=== PATIENT | male | born 1995 | race American Indian/Alaskan Native ===

== ENCOUNTER 2017-08-13 14:59 | Emergency (ER) | payer SELFPAY ==
[2017-08-13 15:39] LABS: Basophils # (Auto) 0.1 K/mm3 (0.0-0.1); Basophils % (Auto) 0.5 % (0.0-1.8); Eosinophils # (Auto) 0.5 K/mm3 (0.0-0.4); Eosinophils % (Auto) 3.5 % (0.0-4.3); Hematocrit 44.4 % (35.5-45.6); Hemoglobin 15.3 gm/dl (11.8-15.2); Lymphocytes # (Auto) 1.7 K/mm3 (1.2-5.4); Lymphocytes % (Auto) 11.4 % (13.4-35.0); Mean Corpuscular HGB Conc 35 % (32-34); Mean Corpuscular Hemoglobin 28 pg (28-32); Mean Corpuscular Volume 80 fl (84-94); Monocytes # (Auto) 1.2 K/mm3 (0.0-0.8); Monocytes % (Auto) 8.1 % (0.0-7.3); Platelet Count 302 K/mm3 (140-440); Red Blood Count 5.57 M/mm3 (3.65-5.03); Red Cell Distribution Width 13.7 % (13.2-15.2)
[2017-08-13 15:57] LABS: BUN/Creatinine Ratio 11; Blood Urea Nitrogen 11 mg/dL (9-20); Calcium 8.9 mg/dL (8.4-10.2); Hemolysis Index 2
--- NOTE | 2017-08-13 16:01 | Emergency Department Report ---
ED General Adult HPI - General Chief complaint: Dyspnea/Respdistress Stated complaint: MONSERRAT/CHEST PAINS Time Seen by Provider: 08/13/17 15:49 Source: patient, EMS Mode of arrival: Stretcher Limitations: No Limitations - History of Present Illness Initial comments: Cough with chest pain with breathing for 2 days. He was brought in by EMS with bronchospasm Did have a breathing treatment with marked improvement he is here for evaluation of persistent intermittent chest pain with breathing with bronchospasm with greenish cough for 2 days denies any past medical history. Thinks his lungs got inflamed after he was inhaling some chlorine at work 2 days ago no headache or stiff neck no fever no visual problems no photophobia no exertional chest pain or swelling no risk for dvt or pe no tearing pain atypical chest pain with breathing -: Gradual, days(s) Radiation: non-radiation Consistency: intermittent Associated Symptoms: cough. denies: diaphoresis, fever/chills, headaches, loss of appetite, malaise, nausea/vomiting, rash, seizure, shortness of breath, syncope, weakness - Related Data Previous Rx's Medication Instructions Recorded Last Taken Type Ibuprofen [Motrin 800 MG tab] 800 mg PO Q8HR PRN #30 tablet 06/01/16 Unknown Rx ALBUTEROL Inhaler [ProAir HFA 2 puff IH QID PRN #1 inhalation 08/13/17 Unknown Rx Inhaler] Azithromycin [Zithromax TAB] 500 mg PO QDAY #5 tablet 08/13/17 Unknown Rx Prednisone 50 mg PO DAILY #5 tablet 08/13/17 Unknown Rx Allergies Allergy/AdvReac Type Severity Reaction Status Date / Time No Known Allergies Allergy Verified 06/01/16 20:06 ED Review of Systems ROS: Stated complaint: MONSERRAT/CHEST PAINS Other details as noted in HPI Comment: All other systems reviewed and negative Constitutional: denies: diaphoresis, fever, malaise Eyes: denies: eye discharge, vision change ENT: denies: dental pain, hearing loss, epistaxis Respiratory: cough, wheezing. denies: orthopnea, SOB with exertion, SOB at rest , stridor Cardiovascular: chest pain. denies: palpitations, dyspnea on exertion, orthopnea, edema, syncope, paroxysmal nocturnal dyspnea Gastrointestinal: denies: abdominal pain, nausea, vomiting, diarrhea, constipation, hematemesis, melena, hematochezia Neurological: denies: weakness, numbness, paresthesias, confusion, abnormal gait , vertigo Hematological/Lymphatic: denies: easy bruising, swollen glands ED Past Medical Hx - Past Medical History Previous Medical History?: No - Surgical History Past Surgical History?: No - Social History Smoking Status: Never Smoker Substance Use Type: None - Medications Home Medications: Home Medications Medication Instructions Recorded Confirmed Last Taken Type Ibuprofen [Motrin 800 MG tab] 800 mg PO Q8HR PRN #30 tablet 06/01/16 Unknown Rx ALBUTEROL Inhaler [ProAir HFA 2 puff IH QID PRN #1 inhalation 08/13/17 Unknown Rx Inhaler] Azithromycin [Zithromax TAB] 500 mg PO QDAY #5 tablet 08/13/17 Unknown Rx Prednisone 50 mg PO DAILY #5 tablet 08/13/17 Unknown Rx ED Physical Exam - General Limitations: No Limitations General appearance: alert, in no apparent distress, anxious - Head Head exam: Present: atraumatic, normocephalic - Eye Eye exam: Present: normal appearance, PERRL, EOMI - ENT ENT exam: Present: normal exam, normal orophraynx - Neck Neck exam: Present: normal inspection. Absent: tenderness, meningismus - Respiratory Respiratory exam: Present: normal lung sounds bilaterally, rhonchi. Absent: respiratory distress, wheezes, rales, stridor, chest wall tenderness, accessory muscle use, decreased breath sounds, prolonged expiratory - Cardiovascular Cardiovascular Exam: Present: regular rate, normal rhythm - GI/Abdominal GI/Abdominal exam: Present: soft. Absent: tenderness, guarding, rebound, organomegaly, mass, pulsatile mass - Extremities Exam Extremities exam: Present: normal capillary refill. Absent: pedal edema, joint swelling, calf tenderness - Back Exam Back exam: Present: normal inspection. Absent: full ROM, tenderness, CVA tenderness (R), CVA tenderness (L), muscle spasm, paraspinal tenderness, vertebral tenderness - Neurological Exam Neurological exam: Present: alert, oriented X3, CN II-XII intact. Absent: motor sensory deficit - Psychiatric Psychiatric exam: Present: anxious ED Medical Decision Making - Lab Data Result diagrams: 08/13/17 15:22 08/13/17 15:22 - EKG Data -: EKG Interpreted by Me - EKG Data 08/13/17 17:[address] T changes - Radiology Data Radiology results: report reviewed - Medical Decision Making Labs were mostly unremarkable EKG nondiagnostic chest pain atypical troponin is negative does have an elevated WBC with greenish cough with likely bronchitis and bronchospasm he is still for outpatient follow-up with repeat vital signs stable Critical care attestation.: If time is entered above; I have spent that time in minutes in the direct care of this critically ill patient, excluding procedure time. ED Disposition Clinical Impression: Asthmatic bronchitis Disposition: - TO HOME OR SELFCARE Is pt being admited?: No Condition: Stable Instructions: Acute Bronchitis (ED), Bronchospasm (ED) Additional Instructions: Return if new or alarming symptoms to the doctor listed Prescriptions: ALBUTEROL Inhaler [ProAir HFA Inhaler] 2 puff IH QID PRN #1 inhalation PRN Reason: Shortness Of Breath Azithromycin [Zithromax TAB] 500 mg PO QDAY #5 tablet Prednisone 50 mg PO DAILY #5 tablet
[2017-08-13] MEDS ORDERED: DUONEB *Not for PRN Use IH ONE (16:02)
[2017-08-13] MEDS ORDERED: DELTASONE PO ONE (16:02)
--- NOTE | 2017-08-13 16:48 | XRay Report ---
FINAL REPORT PROCEDURE: XR CHEST ROUTINE 2V TECHNIQUE: PA and lateral chest radiographs were obtained. CPT 58617 HISTORY: Shortness of breath COMPARISON: No prior studies are available for comparison. FINDINGS: Heart: Normal. Mediastinum/Vessels: Normal. Lungs/Pleural space: Clear.. Bony thorax: No acute osseous abnormality. Mild thoracic scoliosis visualized. Other: IMPRESSION: No evidence of acute cardiac or pulmonary process..
== END 2017-08-13 17:35 | disposition home or self-care (01) ==
LOC: ED 14:59
DX: J40 Bronchitis, not specified as acute or chronic (principal)
CPT/HCPCS: 36415; 71046; 80048; 84484; 85025; 93005; 93010; 94640; 99284; J7512

== ENCOUNTER 2017-10-18 14:15 | Inpatient (IN) | payer OTHER ==
[2017-10-18 16:21] LABS: Basophils # (Auto) 0.1 K/mm3 (0.0-0.1); Basophils % (Auto) 0.6 % (0.0-1.8); Eosinophils # (Auto) 0.4 K/mm3 (0.0-0.4); Eosinophils % (Auto) 3.4 % (0.0-4.3); Hematocrit 41.6 % (35.5-45.6); Hemoglobin 14.5 gm/dl (11.8-15.2); Lymphocytes # (Auto) 1.6 K/mm3 (1.2-5.4); Lymphocytes % (Auto) 12.2 % (13.4-35.0); Mean Corpuscular HGB Conc 35 % (32-34); Mean Corpuscular Hemoglobin 28 pg (28-32); Mean Corpuscular Volume 80 fl (84-94); Monocytes # (Auto) 0.8 K/mm3 (0.0-0.8); Monocytes % (Auto) 6.6 % (0.0-7.3); Platelet Count 330 K/mm3 (140-440); Red Blood Count 5.17 M/mm3 (3.65-5.03); Red Cell Distribution Width 14.1 % (13.2-15.2)
[2017-10-18 16:27] LABS: INR 2.24 (0.87-1.13)
[2017-10-18 16:28] LABS: Partial Thromboplastin Time 35.1 Sec. (24.2-36.6)
[2017-10-18 16:34] LABS: BUN/Creatinine Ratio 11; Blood Urea Nitrogen 9 mg/dL (9-20); Calcium 9.4 mg/dL (8.4-10.2); Hemolysis Index 0
[2017-10-18] MEDS ORDERED: FIORICET PO ONE (17:55)
--- NOTE | 2017-10-18 18:00 | Emergency Department Report ---
HPI - General Chief Complaint: Headache Time Seen by Provider: 10/18/17 17:42 - HPI HPI: Room 4 The patient is a 21-year-old male presenting with a chief complaint of headache. The patient states for 5 days has had a constant headache in the frontal and bitemporal regions. Patient denies any preceding trauma. Patient describes pain as sharp in nature. Patient admits to 3 episodes of vomiting. Patient denies history of fever or rash. The patient gets his pain is 9/10 Location: [See above] Duration: 5 days Quality: Sharp Severity: 9/10 Modifying factors: [see above] Context: [see above] Mode of transportation: [not driving] ED Past Medical Hx - Past Medical History Previous Medical History?: No - Surgical History Past Surgical History?: No - Family History Family history: no significant - Social History Smoking Status: Never Smoker Substance Use Type: Marijuana - Medications Home Medications: Home Medications Medication Instructions Recorded Confirmed Last Taken Type Ibuprofen [Motrin 800 MG tab] 800 mg PO Q8HR PRN #30 tablet 06/01/16 Unknown Rx ALBUTEROL Inhaler [ProAir HFA 2 puff IH QID PRN #1 inhalation 08/13/17 Unknown Rx Inhaler] Azithromycin [Zithromax TAB] 500 mg PO QDAY #5 tablet 08/13/17 Unknown Rx Prednisone 50 mg PO DAILY #5 tablet 08/13/17 Unknown Rx ED Review of Systems ROS: Stated complaint: HEADACHE AND VOMITTING Other details as noted in HPI Constitutional: denies: fever Eyes: denies: eye pain ENT: denies: throat pain Respiratory: no symptoms reported Cardiovascular: denies: chest pain Endocrine: denies: unexplained weight loss (patient states he intentionally lost weight over 6 months through intensive diet and exercise) Gastrointestinal: nausea, vomiting. denies: abdominal pain Genitourinary: denies: dysuria Musculoskeletal: denies: back pain Skin: denies: change in color Neurological: headache Physical Exam - Physical Exam Vital Signs: Vital Signs 10/18/17 14:50 Temperature 99.1 F Pulse Rate 69 Respiratory 16 Rate Blood Pressure 120/57 O2 Sat by Pulse 99 Oximetry Physical Exam: GENERAL: The patient is well-developed well-nourished male sitting on stretcher not appear to be in acute distress. [] HEENT: Normocephalic. Atraumatic. Extraocular motions are intact. Patient has moist mucous membranes. NECK: Supple. No meningitic signs are noted. There is no nuchal rigidity. Patient states that if he sits up and then flexes his neck sometimes he has increased pain in the forehead but no neck pain CHEST/LUNGS: Clear to auscultation. There is no respiratory distress noted. HEART/CARDIOVASCULAR: Regular. There is no tachycardia. There is no gallop rub or murmur. ABDOMEN: Abdomen is soft, nontender. Patient has normal bowel sounds. There is no abdominal distention. SKIN: There is no rash. There is no edema. There is no diaphoresis. NEURO: The patient is awake, alert, and oriented. The patient is cooperative. The patient has no focal neurologic deficits. The patient has normal speech. Cranial nerves II through XII grossly intact, no drift MUSCULOSKELETAL: There is no evidence of acute injury. ED Course Vital Signs 10/18/17 14:50 Temperature 99.1 F Pulse Rate 69 Respiratory 16 Rate Blood Pressure 120/57 O2 Sat by Pulse 99 Oximetry - Lumbar Puncture Consent Obtained: verbal consent Time Out Performed: Yes Indication for Procedure: headache Patient Position: Sitting Upright/Leaning F Skin Prep: Povidone-Iodine 1% Local Anesthetic Used: Lidocaine 1% Amount of anesthesia used (mls): 10 Spinal Needle Gauge: 20G Spinal Needle Length: 3.5in Interspace Used: L4-L5 Complications: unable to obtain CSF (needle was inserted to the hub with no return of CSF) Patient Tolerated Procedure: well ED Medical Decision Making - Lab Data Result diagrams: 10/18/17 15:39 10/18/17 15:39 Laboratory Tests 10/18/17 10/18/17 10/18/17 15:39 15:39 15:39 WBC 12.8 H RBC 5.17 H Hgb 14.5 Hct 41.6 MCV 80 L MCH 28 MCHC 35 H RDW 14.1 Plt Count 330 Lymph % (Auto) 12.2 L [place] % (Auto) 6.6 Eos % (Auto) 3.4 Baso % (Auto) 0.6 Lymph # 1.6 [place] # 0.8 Eos # 0.4 Baso # 0.1 Seg Neutrophils % 77.2 H Seg Neutrophils # 9.9 H PT 26.3 H INR 2.24 H APTT 35.1 Sodium 144 Potassium 4.3 Chloride 104.8 Carbon Dioxide 29 Anion Gap 15 BUN 9 Creatinine 0.8 Estimated GFR > 60 BUN/Creatinine Ratio 11 Glucose 84 Calcium 9.4 10/18/17 18:09 WBC RBC Hgb Hct MCV MCH MCHC RDW Plt Count Lymph % (Auto) [place] % (Auto) Eos % (Auto) Baso % (Auto) Lymph # [place] # Eos # Baso # Seg Neutrophils % Seg Neutrophils # PT 14.5 INR 1.07 APTT 38.0 H Sodium Potassium Chloride Carbon Dioxide Anion Gap BUN Creatinine Estimated GFR BUN/Creatinine Ratio Glucose Calcium - Radiology Data Radiology results: report reviewed (CT head), image reviewed (CT head) [facility] [address] [place] [address] Cat Scan Report Signed Patient: NAYE GE MR#: [id number] : 1995 Acct:[id number] Age/Sex: 21 / M ADM Date: 10/18/17 Loc: ED Attending Dr: Ordering Physician: SANDY MACK MD Date of Service: 10/18/17 Procedure(s): CT head/brain wo con Accession Number(s): [id number] cc: SANDY MACK MD FINAL REPORT EXAM: CT HEAD/BRAIN WO CON HISTORY: headache TECHNIQUE: CT head without contrast PRIORS: None. FINDINGS: No acute intra-axial or extra-axial hemorrhage is identified. There is no evidence of midline shift or mass effect. The ventricles and sulci are within normal limits. Chakraborty-white matter differentiation is intact. No acute parenchymal abnormalities seen. Bony calvarium is grossly intact. Visualized portions of the mastoids and paranasal sinuses are unremarkable. IMPRESSION: Negative CT head Transcribed By: Kimber Dictated By: MADHU LAMB MD Electronically Authenticated By: MADHU LAMB MD Signed Date/Time: 10/18/171947 DD/ 47 TD/TT: 10/18/171947 - Differential Diagnosis headache, ICH, migraines, intracranial mass, coagulopathy, Critical care attestation.: If time is entered above; I have spent that time in minutes in the direct care of this critically ill patient, excluding procedure time. ED Disposition Clinical Impression: Headache Disposition: OP ADMIT IP TO THIS HOSP Is pt being admited?: Yes Does the pt Need Aspirin: No Condition: Fair Referrals: PRIMARY CARE, [Primary Care Provider] - 3-5 Days Time of Disposition: 21:37 (hospitalist paged (Dr Hernandez))
[2017-10-18] MEDS ORDERED: ZOFRAN ONE (18:27)
[2017-10-18] MEDS ORDERED: ZOFRAN IV ONE (18:31)
[2017-10-18] MEDS ORDERED: SUBLIMAZE IV ONE ×3 (18:54→22:43)
[2017-10-18] MEDS ORDERED: REGLAN IV ONE (18:54)
[2017-10-18 19:32] LABS: INR 1.07 (0.87-1.13)
--- NOTE | 2017-10-18 19:53 | Cat Scan Report ---
FINAL REPORT EXAM: CT HEAD/BRAIN WO CON HISTORY: headache TECHNIQUE: CT head without contrast PRIORS: None. FINDINGS: No acute intra-axial or extra-axial hemorrhage is identified. There is no evidence of midline shift or mass effect. The ventricles and sulci are within normal limits. Chakraborty-white matter differentiation is intact. No acute parenchymal abnormalities seen. Bony calvarium is grossly intact. Visualized portions of the mastoids and paranasal sinuses are unremarkable. IMPRESSION: Negative CT head
[2017-10-18] MEDS ORDERED: XYLOCAINE 1% 20 mL ONE (21:13)
[2017-10-18] MEDS ORDERED: XYLOCAINE 1% 20 mL INFILTRATI ONE (22:43)
[2017-10-18] MEDS ORDERED: NACL 0.9% 1000 ML 1,000 ML IV ONE (23:02)
[2017-10-18] MEDS ORDERED: PHENERGAN PR ONE (23:02)
[2017-10-18] MEDS ORDERED: TYLENOL PO PRN (23:49)
--- NOTE | 2017-10-19 02:24 | History and Physical Report ---
CHIEF COMPLAINT: Headache. HISTORY OF PRESENT ILLNESS: The patient is a 21-year-old male who was noted to be having headache that involved the frontal area going on for 5 days, also, the headache involves the bitemporal area of the head. There is no history of trauma. There is no history of fever or chills. There is no history of neck stiffness and the patient describes the headaches as sharp in nature. There is no history of nasal congestion. The patient presented to the Emergency Room for evaluation. PAST MEDICAL HISTORY: Unremarkable. PAST SURGICAL HISTORY: Unremarkable. FAMILY HISTORY: Noncontributory. SOCIAL HISTORY: The patient does not smoke, does not drink alcohol, and uses marijuana. MEDICATIONS: The patient is on ibuprofen 800 mg by mouth every 8 hours as needed for pain and headache. The patient is also on albuterol inhaler two puffs as needed for shortness of breath and prednisone 50 mg by mouth daily. ALLERGIES: There are no known drug allergies. REVIEW OF SYSTEMS: CONSTITUTIONAL: There is no fever, no chills, no diaphoresis. HEENT: Headache present. No sore throat. CARDIOVASCULAR SYSTEM: There is no chest pain or orthopnea. RESPIRATORY SYSTEM: There is no shortness of breath or cough. GASTROINTESTINAL SYSTEM: Nausea and vomiting present. No abdominal pain, no diarrhea or constipation. NEUROLOGICAL SYSTEM: There is no numbness, no dizziness, no altered mental status. MUSCULOSKELETAL SYSTEM: There is no joint pain or swelling. DERMATOLOGICAL SYSTEM: There is no skin rash or itching. GENITOURINARY SYSTEM: There is no dysuria, hematuria or flank pain. Rest of system review is normal. PHYSICAL EXAMINATION: GENERAL: At the time of exam, the patient was found to be alert, oriented x 3, and not in acute distress. VITAL SIGNS: Shows temperature of 99.1 degrees Fahrenheit, pulse of 69, respirations 16, blood pressure 120/57, O2 sat of 99% on room air. HEENT: Exam showed pupils to be equal, round, and reactive to light and accommodation. Extraocular muscles are intact. NECK: Supple, with no JVD or carotid bruit. CARDIOVASCULAR SYSTEM: Show normal first and second heart sounds with no gallops or murmurs. RESPIRATORY SYSTEM: Show good air entry on both sides of the lungs with no abnormal breath sounds. GASTROINTESTINAL SYSTEM: Show abdomen to be full, soft, nontender with no organomegaly or rigidity. NEUROLOGIC: Exam shows no focal deficits. MUSCULOSKELETAL SYSTEM: Show no joint swelling or tenderness. DERMATOLOGICAL SYSTEM: Show no skin rash. GENITOURINARY SYSTEM: Showing no costovertebral angle tenderness. PERTINENT LABORATORY STUDIES: The patient has CBC done with elevated white count of 12,800, normal hemoglobin, normal hematocrit, with CBC differential showing elevated segmented neutrophil of 7.2%, coagulation studies show elevated INR of 3.2, and elevated PT of 26.3, and high PTT of 38. The patient is not on any Coumadin. Chemistry is unremarkable. IMAGING STUDIES: The patient had a CT of the head done that was unremarkable. The patient also had lumbar puncture done with no cerebrospinal fluid obtained during the lumbar puncture. DIAGNOSES: 1. Headache. 2. Leukocytosis. 3. Elevated INR. PLAN: The patient will be admitted to medical/surgical floor, and will be on Tylenol 650 mg by mouth every 4 hours for fever and headache. The patient will be on intravenous ceftriaxone 1 g daily as an empiric treatment. After blood culture were done, the patient will be on intravenous Zofran 4 mg every 8 hours as needed for nausea and vomiting and deep venous thrombosis prophylaxis will be through sequential compressive device. Further management of the patient will be determined along with presentation. JOB# [id number] OCN/NTS
[2017-10-19] MEDS: NACL 0.9% 1000 ML 1,000 ML IV SCH ×3 (02:45→21:58)
[2017-10-19] MEDS: MORPHINE IV PRN ×5 (02:45→21:58)
[2017-10-19 06:58] LABS: Hematocrit 38.3 % (35.5-45.6); Hemoglobin 13.2 gm/dl (11.8-15.2)
[2017-10-19 07:22] LABS: Albumin 3.6 g/dL (3.9-5); Bilirubin,Direct 0.2 mg/dL (0-0.2)
--- NOTE | 2017-10-19 07:58 | Progress Note ---
Assessment and Plan Assessment and plan: Patient is a 21 yo man with a history of marijuana use who presented to ED headaches, n/v/d. CT head reported as negative, wbc 12.8. INR was 2.24, then 1.07 on repeat. LP was done in ED but to procedure note yet or labs results from the LP. -Headache with n/v suspect related to marijuana use with AGE: pain control -Acute Gastroenteritis: treat supportively, antiemetics -Leukocytosis w/o SIRS, suspected to be reactive but started on empiric abx, follow cultures, Get HIV testing -Marijuana use: group counselor on stopping -DVT prophylaxis: scd only -Hematemesis, GI consulted with normal h/h, possible related to vomiting, still NPO: cbc in am History Interval history: Patient was seen and examined. Follow-up on current diagnosis, n/v/dalal/d. Overnight uneventful. Patient denies any chest pain, shortness breath. Imaging, nursing note, chart, labs and old chart reviewed. Discussed with patient. Hospitalist Physical - Physical exam Narrative exam: GEN: WDWN, NAD, Awake, Alert, Orientated x 3 HEENT: NCAT, EOMI, PERRL, OP Clear NECK: supple, no adenopathy, no thyromegaly, no JVD CVS/HEART: RRR, normal S1S2, pulses present bilaterally CHEST/LUNGS: CTA B, Symmetrical chest expansion, good air entry bilaterally GI/Abdomen: soft, non distended, diffuse tenderness bilateral, good bowel sounds , no guarding or rebound /Bladder: no suprapubic tenderness, no CVA or paraspinal tenderness EXT/Skin: no c/c/e, no obvious rash MSK: FROM x 4 Neuro: CN 2-12 grossly intact, no new focal deficits Psych: calm - Constitutional Vitals: Temp Pulse Resp BP Pulse Ox 99.2 F 64 18 141/88 98 10/19/17 05:09 10/19/17 05:09 10/19/17 05:09 10/19/17 05:09 10/19/17 05:09 Results - Labs CBC & Chem 7: 10/19/17 06:27 10/18/17 15:39 Labs: Laboratory Last Values WBC 12.8 K/mm3 (4.5-11.0) H 10/18/17 15:39 RBC 5.17 M/mm3 (3.65-5.03) H 10/18/17 15:39 Hgb 13.2 gm/dl (11.8-15.2) 10/19/17 06:27 Hct 38.3 % (35.5-45.6) 10/19/17 06:27 MCV 80 fl (84-94) L 10/18/17 15:39 MCH 28 pg (28-32) 10/18/17 15:39 MCHC 35 % (32-34) H 10/18/17 15:39 RDW 14.1 % (13.2-15.2) 10/18/17 15:39 Plt Count 330 K/mm3 (140-440) 10/18/17 15:39 Lymph % (Auto) 12.2 % (13.4-35.0) L 10/18/17 15:39 [place] % (Auto) 6.6 % (0.0-7.3) 10/18/17 15:39 Eos % (Auto) 3.4 % (0.0-4.3) 10/18/17 15:39 Baso % (Auto) 0.6 % (0.0-1.8) 10/18/17 15:39 Lymph # 1.6 K/mm3 (1.2-5.4) 10/18/17 15:39 [place] # 0.8 K/mm3 (0.0-0.8) 10/18/17 15:39 Eos # 0.4 K/mm3 (0.0-0.4) 10/18/17 15:39 Baso # 0.1 K/mm3 (0.0-0.1) 10/18/17 15:39 Seg Neutrophils % 77.2 % (40.0-70.0) H 10/18/17 15:39 Seg Neutrophils # 9.9 K/mm3 (1.8-7.7) H 10/18/17 15:39 PT 14.5 Sec. (12.2-14.9) 10/18/17 18:09 INR 1.07 (0.87-1.13) 10/18/17 18:09 APTT 38.0 Sec. (24.2-36.6) H 10/18/17 18:09 Sodium 144 mmol/L (137-145) 10/18/17 15:39 Potassium 4.3 mmol/L (3.6-5.0) 10/18/17 15:39 Chloride 104.8 mmol/L (98-107) 10/18/17 15:39 Carbon Dioxide 29 mmol/L (22-30) 10/18/17 15:39 Anion Gap 15 mmol/L 10/18/17 15:39 BUN 9 mg/dL (9-20) 10/18/17 15:39 Creatinine 0.8 mg/dL (0.8-1.5) 10/18/17 15:39 Estimated GFR > 60 ml/min 10/18/17 15:39 BUN/Creatinine Ratio 11 % 10/18/17 15:39 Glucose 84 mg/dL (75-100) 10/18/17 15:39 Calcium 9.4 mg/dL (8.4-10.2) 10/18/17 15:39 Total Bilirubin 1.00 mg/dL (0.1-1.2) 10/19/17 06:27 Direct Bilirubin 0.2 mg/dL (0-0.2) 10/19/17 06:27 Indirect Bilirubin 0.8 mg/dL 10/19/17 06:27 AST 16 units/L (5-40) 10/19/17 06:27 ALT 27 units/L (7-56) 10/19/17 06:27 Alkaline Phosphatase 79 units/L (35-129) 10/19/17 06:27 Total Protein 6.5 g/dL (6.3-8.2) 10/19/17 06:27 Albumin 3.6 g/dL (3.9-5) L 10/19/17 06:27 Albumin/Globulin Ratio 1.2 % 10/19/17 06:27 Blood Type O POSITIVE 10/19/17 06:27 Antibody Screen Negative 10/19/17 06:27
[2017-10-19 08:09] LABS: Hematocrit 38.3 % (35.5-45.6); Hemoglobin 13.1 gm/dl (11.8-15.2); Mean Corpuscular HGB Conc 34 % (32-34); Mean Corpuscular Hemoglobin 28 pg (28-32); Mean Corpuscular Volume 82 fl (84-94); Platelet Count 308 K/mm3 (140-440); Red Blood Count 4.69 M/mm3 (3.65-5.03); Red Cell Distribution Width 14.1 % (13.2-15.2)
--- NOTE | 2017-10-19 08:45 | XRay Report ---
AP CHEST: HISTORY: Pneumonia AP view of the chest demonstrates a normal mediastinal and cardiac contour with clear lungs and normal bony and soft tissue structures. IMPRESSION: Unremarkable AP chest. No change since 08/13/17.
[2017-10-19] MEDS ORDERED: HEPARIN SUB-Q SCH (10:00)
[2017-10-19] MEDS ORDERED: ROCEPHIN/NS 1 GM/50 ML 1 GM/50 ML BAG IV SCH (10:00)
[2017-10-19] MEDS: PROTONIX IV SCH ×2 (10:55→21:59)
[2017-10-19 12:31] LABS: Bilirubin,Urine NEG (Negative); Blood,Urine NEG (Negative); Color,Urine Yellow (Yellow); Mucus,Urine FEW /HPF; Protein,Urine <15 mg/dL mg/dL (Negative)
[2017-10-19 12:33] LABS: RBC,Urine < 1.0 /HPF (0.0-6.0)
--- NOTE | 2017-10-19 14:52 | Gastroenterology Consultation ---
History of Present Illness - Reason for Consult Consult date: 10/19/17 Hematemesis Requesting physician: NEEL RANDHAWA - History of Present Illness Mr. David is a 21 y/o male admitted with reports of MONREAL/ N/V and one episode of diarrhea. His headache has been present for 5 days. He did not note blood in his emesis at first, but then noted a large amt once he continued to vomit. No recent sick contacts. No regular NSAID use, although he did take ibuprofen for his headache in the immediate days prior to admission. No prior GI hx . He denies abdominal pain and no further vomiting or diarrhea today. Past History Past Medical History: No medical history Past Surgical History: No surgical history Social history: smoking (pt uses marijuana) Family history: no significant family history Medications and Allergies Allergies Allergy/AdvReac Type Severity Reaction Status Date / Time No Known Allergies Allergy Verified 06/01/16 20:06 Home Medications Medication Instructions Recorded Confirmed Last Taken Type No Known Home Medications [No 10/18/17 10/18/17 Unknown History Reported Home Medications] Active Meds: Active Medications Acetaminophen (Tylenol) 650 mg PO Q4H PRN PRN Reason: Headache Ceftriaxone Sodium (Rocephin/Ns 1 Gm/50 Ml) 1 gm in 50 mls @ 100 mls/hr IV Q24HR MAXIMO; Protocol Last Admin: 10/19/17 10:54 Dose: 100 mls/hr Sodium Chloride (Nacl 0.9% 1000 Ml) 1,000 mls @ 125 mls/hr IV DIRECT MAXIMO Last Admin: 10/19/17 11:34 Dose: 125 mls/hr Morphine Sulfate (Morphine) 2 mg IV Q3H PRN PRN Reason: Headache Last Admin: 10/19/17 10:52 Dose: 2 mg Ondansetron HCl (Zofran) 4 mg IV Q8H PRN PRN Reason: Nausea And Vomiting Pantoprazole Sodium (Protonix) 40 mg IV BID MAXIMO Last Admin: 10/19/17 10:55 Dose: 40 mg Review of Systems - Review of Systems All systems: negative Constitutional: fatigue Gastrointestinal: nausea, vomiting, diarrhea Exam - Constitutional Vital Signs: Temp Pulse Resp BP Pulse Ox 98.5 F 56 L 16 132/76 99 10/19/17 11:28 10/19/17 11:28 10/19/17 11:28 10/19/17 11:28 10/19/17 11:28 General appearance: no acute distress - EENT Eyes: EOM intact ENT: hearing intact - Neck Neck: supple - Respiratory Respiratory: bilateral: CTA - Cardiovascular Rhythm: regular Heart Sounds: Present: S1 & S2 Extremities: No edema, Full ROM - Gastrointestinal General gastrointestinal: Present: soft, non-tender, normal bowel sounds - Integumentary Integumentary: Present: warm, dry - Neurologic Neurological: alert and oriented x3 - Psychiatric Psychiatric: cooperative - Labs CBC & Chem 7: 10/19/17 06:27 10/18/17 15:39 Lab Results: Laboratory Results - last 24 hr 10/18/17 10/18/17 10/18/17 15:39 15:39 15:39 WBC 12.8 H RBC 5.17 H Hgb 14.5 Hct 41.6 MCV 80 L MCH 28 MCHC 35 H RDW 14.1 Plt Count 330 Lymph % (Auto) 12.2 L [place] % (Auto) 6.6 Eos % (Auto) 3.4 Baso % (Auto) 0.6 Lymph # 1.6 [place] # 0.8 Eos # 0.4 Baso # 0.1 Seg Neutrophils % 77.2 H Seg Neutrophils # 9.9 H PT 26.3 H INR 2.24 H APTT 35.1 Sodium 144 Potassium 4.3 Chloride 104.8 Carbon Dioxide 29 Anion Gap 15 BUN 9 Creatinine 0.8 Estimated GFR > 60 BUN/Creatinine Ratio 11 Glucose 84 Calcium 9.4 Total Bilirubin Direct Bilirubin Indirect Bilirubin AST ALT Alkaline Phosphatase Total Protein Albumin Albumin/Globulin Ratio Urine Color Urine Turbidity Urine pH Ur Specific [place] Urine Protein Urine Glucose (UA) Urine Ketones Urine Blood Urine Nitrite Urine Bilirubin Urine Urobilinogen Ur Leukocyte Esterase Urine WBC (Auto) Urine RBC (Auto) Urine Mucus HIV 1&2 Antibody Rapid HIV P24 Antigen Blood Type Antibody Screen 10/18/17 10/19/17 10/19/17 18:09 06:27 06:27 WBC RBC Hgb 13.2 Hct 38.3 MCV MCH MCHC RDW Plt Count Lymph % (Auto) [place] % (Auto) Eos % (Auto) Baso % (Auto) Lymph # [place] # Eos # Baso # Seg Neutrophils % Seg Neutrophils # PT 14.5 INR 1.07 APTT 38.0 H Sodium Potassium Chloride Carbon Dioxide Anion Gap BUN Creatinine Estimated GFR BUN/Creatinine Ratio Glucose Calcium Total Bilirubin 1.00 Direct Bilirubin 0.2 Indirect Bilirubin 0.8 AST 16 ALT 27 Alkaline Phosphatase 79 Total Protein 6.5 Albumin 3.6 L Albumin/Globulin Ratio 1.2 Urine Color Urine Turbidity Urine pH Ur Specific [place] Urine Protein Urine Glucose (UA) Urine Ketones Urine Blood Urine Nitrite Urine Bilirubin Urine Urobilinogen Ur Leukocyte Esterase Urine WBC (Auto) Urine RBC (Auto) Urine Mucus HIV 1&2 Antibody Rapid HIV P24 Antigen Blood Type Antibody Screen 10/19/17 10/19/17 10/19/17 06:27 06:27 07:58 WBC 14.1 H RBC 4.69 Hgb 13.1 Hct 38.3 MCV 82 L MCH 28 MCHC 34 RDW 14.1 Plt Count 308 Lymph % (Auto) [place] % (Auto) Eos % (Auto) Baso % (Auto) Lymph # [place] # Eos # Baso # Seg Neutrophils % Seg Neutrophils # PT INR APTT Sodium Potassium Chloride Carbon Dioxide Anion Gap BUN Creatinine Estimated GFR BUN/Creatinine Ratio Glucose Calcium Total Bilirubin Direct Bilirubin Indirect Bilirubin AST ALT Alkaline Phosphatase Total Protein Albumin Albumin/Globulin Ratio Urine Color Yellow Urine Turbidity Clear Urine pH 6.0 Ur Specific [place] 1.021 Urine Protein <15 mg/dl Urine Glucose (UA) Neg Urine Ketones 20 Urine Blood Neg Urine Nitrite Neg Urine Bilirubin Neg Urine Urobilinogen 2.0 Ur Leukocyte Esterase Neg Urine WBC (Auto) 1.0 Urine RBC (Auto) < 1.0 Urine Mucus Few HIV 1&2 Antibody Rapid HIV P24 Antigen Blood Type O POSITIVE Antibody Screen Negative 10/19/17 11:24 WBC RBC Hgb Hct MCV MCH MCHC RDW Plt Count Lymph % (Auto) [place] % (Auto) Eos % (Auto) Baso % (Auto) Lymph # [place] # Eos # Baso # Seg Neutrophils % Seg Neutrophils # PT INR APTT Sodium Potassium Chloride Carbon Dioxide Anion Gap BUN Creatinine Estimated GFR BUN/Creatinine Ratio Glucose Calcium Total Bilirubin Direct Bilirubin Indirect Bilirubin AST ALT Alkaline Phosphatase Total Protein Albumin Albumin/Globulin Ratio Urine Color Urine Turbidity Urine pH Ur Specific [place] Urine Protein Urine Glucose (UA) Urine Ketones Urine Blood Urine Nitrite Urine Bilirubin Urine Urobilinogen Ur Leukocyte Esterase Urine WBC (Auto) Urine RBC (Auto) Urine Mucus HIV 1&2 Antibody Rapid Non react HIV P24 Antigen Non react Blood Type Antibody Screen Assessment and Plan 1. Hematemesis -N/V likely due to MONREAL/ +/- Marijuana usage. -Possibly Sabrina Mejia tear. -Pt would like to go forward with EGD tomorrow -H/H stable. -PPI daily -EGD tomorrow, NPO after MN.
[2017-10-20] MEDS: ZOFRAN IV PRN ×2 (03:56→22:34)
[2017-10-20] MEDS: MORPHINE IV PRN ×3 (03:56→23:18)
[2017-10-20] MEDS: NACL 0.9% 1000 ML 1,000 ML IV SCH ×2 (07:53→13:27)
--- NOTE | 2017-10-20 08:15 | Progress Note ---
Assessment and Plan Assessment and plan: Patient is a 21 yo man with a history of marijuana use who presented to ED headaches, n/v/d. CT head reported as negative, wbc 12.8. INR was 2.24, then 1.07 on repeat. LP was done in ED but to procedure note yet or labs results from the LP. * pCXR negative * CT head w/o contrast reported as negative -Hematemesis, possibly from retching causing Sabrina Mejia tear: EGD, GI following -Headache with n/v suspect related to marijuana use with AGE: pain control -Acute Gastroenteritis: treat supportively, antiemetics -Leukocytosis w/o SIRS, suspected to be reactive but started on empiric abx, follow cultures, HIV=>neg -Marijuana use: student financial services counselor on stopping -DVT prophylaxis: scd only HIV negative still low grade febrile, WBC increasing, stop iv rocephin and broad coverage with IV Zosyn. EGD today, Get CT chest if EGD unremarkable. History Interval history: Patient was seen and examined. Follow-up on current diagnosis, n/v/dalal/d. Overnight uneventful. Patient denies any chest pain, shortness breath. Imaging, nursing note, chart, labs and old chart reviewed. Discussed with patient. Hospitalist Physical - Physical exam Narrative exam: GEN: WDWN, NAD, Awake, Alert, Orientated x 3 HEENT: NCAT, EOMI, PERRL, OP Clear NECK: supple, no adenopathy, no thyromegaly, no JVD CVS/HEART: RRR, normal S1S2, pulses present bilaterally CHEST/LUNGS: CTA B, Symmetrical chest expansion, good air entry bilaterally GI/Abdomen: soft, non distended, diffuse tenderness bilateral, good bowel sounds , no guarding or rebound /Bladder: no suprapubic tenderness, no CVA or paraspinal tenderness EXT/Skin: no c/c/e, no obvious rash MSK: FROM x 4 Neuro: CN 2-12 grossly intact, no new focal deficits Psych: calm - Constitutional Vitals: Temp Pulse Resp BP Pulse Ox 99.6 F 55 L 20 117/60 97 10/20/17 05:26 10/20/17 05:26 10/20/17 05:26 10/20/17 05:26 10/20/17 05:26 Results - Labs CBC & Chem 7: 10/19/17 06:27 10/18/17 15:39 Labs: Laboratory Last Values WBC 14.1 K/mm3 (4.5-11.0) H 10/19/17 06:27 RBC 4.69 M/mm3 (3.65-5.03) 10/19/17 06:27 Hgb 13.1 gm/dl (11.8-15.2) 10/19/17 06: Hct 38.3 % (35.5-45.6) 10/19/17 06: MCV 82 fl (84-94) L 10/19/17 06:27 MCH 28 pg (28-32) 10/19/17 06: MCHC 34 % (32-34) 10/19/17 06: RDW 14.1 % (13.2-15.2) 10/19/17 06:27 Plt Count 308 K/mm3 (140-440) 10/19/17 06:27 Lymph % (Auto) 12.2 % (13.4-35.0) L 10/18/17 15:39 [place] % (Auto) 6.6 % (0.0-7.3) 10/18/17 15:39 Eos % (Auto) 3.4 % (0.0-4.3) 10/18/17 15:39 Baso % (Auto) 0.6 % (0.0-1.8) 10/18/17 15:39 Lymph # 1.6 K/mm3 (1.2-5.4) 10/18/17 15:39 [place] # 0.8 K/mm3 (0.0-0.8) 10/18/17 15:39 Eos # 0.4 K/mm3 (0.0-0.4) 10/18/17 15:39 Baso # 0.1 K/mm3 (0.0-0.1) 10/18/17 15:39 Seg Neutrophils % 77.2 % (40.0-70.0) H 10/18/17 15:39 Seg Neutrophils # 9.9 K/mm3 (1.8-7.7) H 10/18/17 15:39 PT 14.5 Sec. (12.2-14.9) 10/18/17 18:09 INR 1.07 (0.87-1.13) 10/18/17 18:09 APTT 38.0 Sec. (24.2-36.6) H 10/18/17 18:09 Sodium 144 mmol/L (137-145) 10/18/17 15:39 Potassium 4.3 mmol/L (3.6-5.0) 10/18/17 15:39 Chloride 104.8 mmol/L (98-107) 10/18/17 15:39 Carbon Dioxide 29 mmol/L (22-30) 10/18/17 15:39 Anion Gap 15 mmol/L 10/18/17 15:39 BUN 9 mg/dL (9-20) 10/18/17 15:39 Creatinine 0.8 mg/dL (0.8-1.5) 10/18/17 15:39 Estimated GFR > 60 ml/min 10/18/17 15:39 BUN/Creatinine Ratio 11 % 10/18/17 15:39 Glucose 84 mg/dL (75-100) 10/18/17 15:39 Calcium 9.4 mg/dL (8.4-10.2) 10/18/17 15:39 Total Bilirubin 1.00 mg/dL (0.1-1.2) 10/19/17 06:27 Direct Bilirubin 0.2 mg/dL (0-0.2) 10/19/17 06:27 Indirect Bilirubin 0.8 mg/dL 10/19/17 06:27 AST 16 units/L (5-40) 10/19/17 06:27 ALT 27 units/L (7-56) 10/19/17 06:27 Alkaline Phosphatase 79 units/L (35-129) 10/19/17 06:27 Total Protein 6.5 g/dL (6.3-8.2) 10/19/17 06:27 Albumin 3.6 g/dL (3.9-5) L 10/19/17 06:27 Albumin/Globulin Ratio 1.2 % 10/19/17 06:27 Urine Color Yellow (Yellow) 10/19/17 07:58 Urine Turbidity Clear (Clear) 10/19/17 07:58 Urine pH 6.0 (5.0-7.0) 10/19/17 07:58 Ur Specific [place] 1.021 (1.003-1.030) 10/19/17 07:58 Urine Protein <15 mg/dl mg/dL (Negative) 10/19/17 07:58 Urine Glucose (UA) Neg mg/dL (Negative) 10/19/17 07:58 Urine Ketones 20 mg/dL (Negative) 10/19/17 07:58 Urine Blood Neg (Negative) 10/19/17 07:58 Urine Nitrite Neg (Negative) 10/19/17 07:58 Urine Bilirubin Neg (Negative) 10/19/17 07:58 Urine Urobilinogen 2.0 mg/dL (<2.0) 10/19/17 07:58 Ur Leukocyte Esterase Neg (Negative) 10/19/17 07:58 Urine WBC (Auto) 1.0 /HPF (0.0-6.0) 10/19/17 07:58 Urine RBC (Auto) < 1.0 /HPF (0.0-6.0) 10/19/17 07:58 Urine Mucus Few /HPF 10/19/17 07:58 HIV 1&2 Antibody Rapid Non react (Non React) 10/19/17 11:24 HIV P24 Antigen Non react (Non React) 10/19/17 11:24 Blood Type O POSITIVE 10/19/17 06:27 Antibody Screen Negative 10/19/17 06:27
[2017-10-20] MEDS: PROTONIX IV SCH ×2 (10:20→22:34)
[2017-10-20] MEDS: ZOSYN/NS 4.5GM/100ML 4.5 GM/100 ML VIAL IV SCH ×3 (12:21→23:20)
[2017-10-20] MEDS ORDERED: WATER FOR IRRIG STERILE IR ONE (13:11)
--- NOTE | 2017-10-20 13:11 | Anesthesia Consultation ---
Anesthesia Consult and Med Hx Date of service: 10/20/17 - Airway Anesthetic Teeth Evaluation: Good ROM Head & Neck: Adequate Mental/Hyoid Distance: Adequate Mallampati Class: Class III Intubation Access Assessment: Possibly Difficult - Pulmonary Exam CTA: Yes - Pre-Operative Health Status ASA Pre-Surgery Classification: ASA3 Proposed Anesthetic Plan: MAC - Pulmonary Hx Smoking: No Hx Asthma: No COPD: No Hx Pneumonia: No - Endocrine Hx End Stage Renal Disease: No
--- NOTE | 2017-10-20 13:11 | Anesthesia Day of Surgery ---
Anesthesia Day of Surgery - Day of Surgery Patient Examined: Yes Patient H&P Reviewed: Yes Patient is NPO: Yes
[2017-10-20] MEDS ORDERED: XYLOCAINE MPF 2% ONE (13:30)
[2017-10-20] MEDS ORDERED: DIPRIVAN 10 MG/ML IV ONE ×2 (14:12→14:13)
--- NOTE | 2017-10-20 14:41 | Post Operative Note ---
Pre-op diagnosis: hematemesis Post-op diagnosis: same Findings: EGD: hiatal hernia, small - healing 1 cm M-W tear g-e junction - erosive gastritis w/ ulceration gastritis body (bx's) - small ulcerations antrum - negative other Procedure: EGD Anesthesia: MAC Surgeon: BLAKE SAWYER Estimated blood loss: none Pathology: list Specimen disposition: to lab Condition: stable Disposition: floor
--- NOTE | 2017-10-20 15:03 | Operative Report ---
PROCEDURE: Esophagogastroduodenoscopy. INDICATION: Hematemesis. MEDICATIONS: Propofol per BILINGUAL INSIDE SALES REPRESENTATIVE. COMPLICATIONS: None. DESCRIPTION OF PROCEDURE: The patient brought to procedure suite. The patient had the procedure discussed with him at length. All risks, complications, and benefits discussed, after which the patient signed for the procedure to be performed. The patient was placed in left lateral decubitus position. Mouth block was placed in the patient's oral cavity. After adequate sedation of medication as above, the endoscope was introduced into the mouth and brought to level of the second portion of duodenum. Retroflexion view performed. The patient's vital signs remained stable throughout the procedure. FINDINGS: There was noted to be a small hiatal hernia at GE junction 40 cm from the gums. There is a 1 cm healing Sabrina-Mejia tear noted at GE junction without significant bleeding stigmata requiring treatment. The esophagus otherwise appeared to be normal. There was moderate erosive esophagitis with ulcerations noted in the proximal lesser curvature. Biopsies were taken and sent to pathology. This was approximately 3-4 cm area. There were 3 small shallow ulcerations noted in the gastric antrum. The stomach otherwise appeared to be normal. The duodenum appeared to be normal. Retroflexion view performed in the stomach showed no other pathology other than noted above. The patient tolerated the procedure well. No complications during the procedure. IMPRESSION: 1. Hiatal hernia. 2. Healing Sabrina-Mejia tear without stigmata requiring treatment. 3. Erosive esophagitis, proximal stomach as noted above with ulcerations, biopsies performed. 4. Small ulcers in the antrum. 5. Otherwise, normal EGD. RECOMMENDATIONS: 1. Follow up biopsy results. 2. Stool for H. pylori, if present, treat with PPI daily. 3. Advance diet. Given a stable H and H, okay to discharge from a GI standpoint. JOB# [id number] [facility]
[2017-10-21] MEDS: ZOSYN/NS 4.5GM/100ML 4.5 GM/100 ML VIAL IV SCH ×3 (06:42→22:13)
[2017-10-21] MEDS: NACL 0.9% 1000 ML 1,000 ML IV SCH ×2 (06:43→18:38)
[2017-10-21 10:31] LABS: BUN/Creatinine Ratio 10; Blood Urea Nitrogen 9 mg/dL (9-20); Calcium 8.9 mg/dL (8.4-10.2); Hemolysis Index 298
--- NOTE | 2017-10-21 10:37 | Cat Scan Report ---
FINAL REPORT EXAM: CT CHEST WO CON HISTORY: fever, leucocytosis TECHNIQUE: Axial images were performed from the lung apices to the bases. Multiplanar reformats are performed on the acquisition scanner. Comparison: 08/13/2017 FINDINGS: Clear lungs. No pleural effusion. Multiple bilateral pectoral and small mediastinal lymph nodes. Soft tissue density in the anterior mediastinum presumably residual thymus gland. Prominent hilar contours presumably vascular structures, incompletely assessed without IV contrast. Imaged upper abdomen is unremarkable. Imaged axial skeleton is within normal limits. IMPRESSION: Multiple small superior mediastinal and pectoral/axillary lymph nodes. Anterior mediastinal soft tissue presumably represents residual thymus. Prominent hilar structures appear to represent vascular structures. If there is a high suspicious for adenopathy, recommend contrasted CT chest. No discrete infiltrate although lung volumes are low and there is mild crowding.
[2017-10-21] MEDS: PROTONIX IV SCH ×2 (10:53→22:15)
--- NOTE | 2017-10-21 12:42 | Progress Note ---
Assessment and Plan Assessment and plan: 21-year-old -[place] male with medical history significant for marijuana use presented to emergency department complaining of headache, nausea , vomiting and diarrhea. Patient had leukocytosis. ? LP was done in the ED but there is no result Headache, nausea, vomiting, diarrhea and leukocytosis - Hematemesis - Patient is empirically on IV Zosyn - CT chest no infiltrates, suspected mediastinal LAP - EGD was done and result is as follows - hiatal hernia, small - healing 1 cm M-W tear g-e junction - erosive gastritis w/ ulceration gastritis body (bx's) - small ulcerations antrum - negative other Marijuana use: Patient was counseled about cessation DVT prophylaxis: SCDs Disposition: Possible discharge tomorrow, if no fever, or leukocytosis trending down or stays the same History Interval history: Patient was seen in neurology this morning, patient didn't have fever overnight , headache is getting better. Hospitalist Physical - Physical exam Narrative exam: Not in cardiopulmonary distress. The patient is obese. Vital signs as documented. Head exam is unremarkable. No scleral icterus . Neck is without jugular venous distension, thyromegaly, or carotid bruits. Lungs are clear to auscultation. Cardiac exam reveals regular rate and Rhythm. Abdominal exam reveals normal bowel sounds, no masses, no organomegaly and no aortic enlargement. Extremities are nonedematous and both femoral and pedal pulses are normal. 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 No nuchal rigidity. - Constitutional Vitals: Temp Pulse Resp BP Pulse Ox 99.4 F 70 20 149/83 98 10/21/17 06:15 10/21/17 06:15 10/21/17 10:00 10/21/17 06:15 10/21/17 06:15 Results - Labs CBC & Chem 7: 10/19/17 06:27 10/21/17 08:53 Labs: Laboratory Last Values WBC 14.1 K/mm3 (4.5-11.0) H 10/19/17 06:27 RBC 4.69 M/mm3 (3.65-5.03) 10/19/17 06:27 Hgb 13.1 gm/dl (11.8-15.2) 10/19/17 06:27 Hct 38.3 % (35.5-45.6) 10/19/17 06:27 MCV 82 fl (84-94) L 10/19/17 06:27 MCH 28 pg (28-32) 10/19/17 06:27 MCHC 34 % (32-34) 10/19/17 06:27 RDW 14.1 % (13.2-15.2) 10/19/17 06:27 Plt Count 308 K/mm3 (140-440) 10/19/17 06:27 Lymph % (Auto) 12.2 % (13.4-35.0) L 10/18/17 15:39 [place] % (Auto) 6.6 % (0.0-7.3) 10/18/17 15:39 Eos % (Auto) 3.4 % (0.0-4.3) 10/18/17 15:39 Baso % (Auto) 0.6 % (0.0-1.8) 10/18/17 15:39 Lymph # 1.6 K/mm3 (1.2-5.4) 10/18/17 15:39 [place] # 0.8 K/mm3 (0.0-0.8) 10/18/17 15:39 Eos # 0.4 K/mm3 (0.0-0.4) 10/18/17 15:39 Baso # 0.1 K/mm3 (0.0-0.1) 10/18/17 15:39 Seg Neutrophils % 77.2 % (40.0-70.0) H 10/18/17 15:39 Seg Neutrophils # 9.9 K/mm3 (1.8-7.7) H 10/18/17 15:39 PT 14.5 Sec. (12.2-14.9) 10/18/17 18:09 INR 1.07 (0.87-1.13) 10/18/17 18:09 APTT 38.0 Sec. (24.2-36.6) H 10/18/17 18:09 Sodium 138 mmol/L (137-145) 10/21/17 08:53 Potassium 5.0 mmol/L (3.6-5.0) 10/21/17 08:53 Chloride 99.7 mmol/L (98-107) 10/21/17 08:53 Carbon Dioxide 23 mmol/L (22-30) 10/21/17 08:53 Anion Gap 20 mmol/L 07/28/18 08:53 BUN 9 mg/dL (9-20) 10/21/17 08:53 Creatinine 0.9 mg/dL (0.8-1.5) 10/21/17 08:53 Estimated GFR > 60 ml/min 10/21/17 08:53 BUN/Creatinine Ratio 10 % 10/21/17 08:53 Glucose 74 mg/dL (75-100) L 10/21/17 08:53 Calcium 8.9 mg/dL (8.4-10.2) 10/21/17 08:53 Total Bilirubin 1.00 mg/dL (0.1-1.2) 10/19/17 06:27 Direct Bilirubin 0.2 mg/dL (0-0.2) 10/19/17 06:27 Indirect Bilirubin 0.8 mg/dL 10/19/17 06:27 AST 16 units/L (5-40) 10/19/17 06:27 ALT 27 units/L (7-56) 10/19/17 06:27 Alkaline Phosphatase 79 units/L (35-129) 10/19/17 06:27 Total Protein 6.5 g/dL (6.3-8.2) 10/19/17 06:27 Albumin 3.6 g/dL (3.9-5) L 10/19/17 06:27 Albumin/Globulin Ratio 1.2 % 10/19/17 06:27 Urine Color Yellow (Yellow) 10/19/17 07:58 Urine Turbidity Clear (Clear) 10/19/17 07:58 Urine pH 6.0 (5.0-7.0) 10/19/17 07:58 Ur Specific [place] 1.021 (1.003-1.030) 10/19/17 07:58 Urine Protein <15 mg/dl mg/dL (Negative) 10/19/17 07:58 Urine Glucose (UA) Neg mg/dL (Negative) 10/19/17 07:58 Urine Ketones 20 mg/dL (Negative) 10/19/17 07:58 Urine Blood Neg (Negative) 10/19/17 07:58 Urine Nitrite Neg (Negative) 10/19/17 07:58 Urine Bilirubin Neg (Negative) 10/19/17 07:58 Urine Urobilinogen 2.0 mg/dL (<2.0) 10/19/17 07:58 Ur Leukocyte Esterase Neg (Negative) 10/19/17 07:58 Urine WBC (Auto) 1.0 /HPF (0.0-6.0) 10/19/17 07:58 Urine RBC (Auto) < 1.0 /HPF (0.0-6.0) 10/19/17 07:58 Urine Mucus Few /HPF 10/19/17 07:58 HIV 1&2 Antibody Rapid Non react (Non React) 10/19/17 11:24 HIV P24 Antigen Non react (Non React) 10/19/17 11:24 Blood Type O POSITIVE 10/19/17 06:27 Antibody Screen Negative 10/19/17 06:27
[2017-10-21 13:18] LABS: Hematocrit 43.2 % (35.5-45.6); Red Blood Count 5.38 M/mm3 (3.65-5.03)
[2017-10-21 13:19] LABS: Mean Platelet Volume 8.5 fl (6-12); Red Cell Distribution Width 13.6 % (13.2-15.2)
[2017-10-21] MEDS: MORPHINE IV PRN (22:19)
[2017-10-22] MEDS: NACL 0.9% 1000 ML 1,000 ML IV SCH (06:23)
[2017-10-22] MEDS: ZOSYN/NS 4.5GM/100ML 4.5 GM/100 ML VIAL IV SCH ×2 (06:23→15:36)
[2017-10-22] MEDS: PROTONIX IV SCH (09:54)
--- NOTE | 2017-10-22 11:03 | Discharge Summary ---
Providers - Providers Date of Admission: 10/18/17 23:46 Attending physician: ERICKSON CLEVELAND MD 10/19/17 06:11 Consult to Physician [CONS] Routine Comment: Consulting Provider: BLAKE SAWYER Physician Instructions: Reason For Exam: hemetemesis Primary care physician: WRAPPER DIPPER Hospitalization Reason for admission: headache, hematemesis, SIRS Condition: Stable Pertinent studies: CT head negative for acute intracranial findings. Hospital course: 21-year-old -[place] male with medical history significant for marijuana use presented to emergency department complaining of headache, nausea , vomiting and diarrhea. Patient had leukocytosis. ? LP was done in the ED but there is no result in the chart or procedure note. Headache, nausea, vomiting, diarrhea and leukocytosis: resolved - Hematemesis, resolved - Patient is empirically on IV Zosyn - CT chest no infiltrates, suspected mediastinal LAP - EGD was done and result is as follows - hiatal hernia, small - healing 1 cm M-W tear g-e junction - erosive gastritis w/ ulceration gastritis body (bx's) - small ulcerations antrum - negative other Fever subsided, leukocytosis is stable, headache subsided. Patient was hemodynamically stable and discharged home. Patient was discharged with Po antibiotics. patient advised to come back to ED if he has fever, persistent headache. Disposition: DC-[id number] TO HOME OR SELFCARE Time spent for discharge: 32 minutes - Discharge Diagnoses (1) Hematemesis with nausea Status: Acute (2) Headache Status: Acute (3) Leucocytosis Status: Acute Core Measure Documentation - Palliative Care Palliative Care/ Comfort Measures: Not Applicable - Core Measures Any of the following diagnoses?: none Exam - Physical Exam Narrative exam: Not in cardiopulmonary distress. The patient is obese. Vital signs as documented. Head exam is unremarkable. No scleral icterus . Neck is without jugular venous distension, thyromegaly, or carotid bruits. Lungs are clear to auscultation. Cardiac exam reveals regular rate and Rhythm. Abdominal exam reveals normal bowel sounds, no masses, no organomegaly and no aortic enlargement. Extremities are nonedematous and both femoral and pedal pulses are normal. 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 No nuchal rigidity. - Constitutional Vitals: Temp Pulse Resp BP Pulse Ox 98.5 F 48 L 18 125/82 100 10/22/17 06:21 10/22/17 06:21 10/22/17 06:21 10/22/17 06:21 10/22/17 06:21 Plan Activity: no restrictions Weight Bearing Status: Full Weight Bearing Diet: low fat Additional Instructions: Follow at [facility] 1-2 weeks Follow up with: PRIMARY CARE, [Primary Care Provider] - 3-5 Days Prescriptions: HYDROcodone/APAP 5-325 [[place] 5/325] 1 each PO Q6HR PRN #12 tablet PRN Reason: Pain Levofloxacin [Levaquin] 750 mg PO QDAY #5 tablet Pantoprazole [Protonix TAB] 40 mg PO QDAY #30 tablet
[2017-10-22 12:51] VITALS: BP 124/71
== END 2017-10-22 14:30 | disposition home or self-care (01) | DRG 382 ==
LOC: ED 14:15 → 3A 23:46
PROVIDERS: ADMIT Internal Medicine; ATTEND Internal Medicine
PROC: 0DJ08ZZ Inspection of Upper Intestinal Tract, Via Natural or Artificial Opening Endoscopic (ICD-10-PCS; principal; 2017-10-18)
PROC: 00JU3ZZ Inspection of Spinal Canal, Percutaneous Approach (ICD-10-PCS; 2017-10-18)
DX: K22.11 Ulcer of esophagus with bleeding (principal); K22.6 Gastro-esophageal laceration-hemorrhage syndrome; R51 Headache; K52.9 Noninfective gastroenteritis and colitis, unspecified; F12.90 Cannabis use, unspecified, uncomplicated; K29.01 Acute gastritis with bleeding; K44.9 Diaphragmatic hernia without obstruction or gangrene; D72.829 Elevated white blood cell count, unspecified; Z79.51 Long term (current) use of inhaled steroids; Z71.51 Drug abuse counseling and surveillance of drug abuser
CPT/HCPCS: 36415; 70450; 71045; 71250; 80048; 80074; 81001; 85014; 85018; 85025; 85027; 85610; 85730; 86850; 86900; 86901; 87040; 87806; 88305; 88342; 96361; 96374; 96375; 96376; C9113; J0696; J2270; J2405; J2543; J2704; J2765; J3010; J7030

== ENCOUNTER 2019-01-13 12:30 | Emergency (ER) | payer SELFPAY ==
--- NOTE | 2019-01-13 12:50 | Event Note ---
ED Screening Note Date of service: 01/13/19 Time: 12:48 ED Screening Note: This is a 23 y.o. M. that presents to the ER with lower abdominal pain and vomiting since this morning. PMH hemorrhoids and peptic ulcers. This initial assessment/diagnostic orders/clinical plan/treatment(s) is/are sub ject to change based on patients health status, clinical progression and re- assessment by fellow clinical providers in the ED. Further treatment and workup at subsequent clinical providers discretion. Patient/guardian urged not to elope from the ED as their condition may be serious if not clinically assessed and managed. Initial orders include: Labs and CT of abdomen pelvis
[2019-01-13] MEDS ORDERED: NACL 0.9% 1000 ML 1,000 ML IV ONE (13:04)
[2019-01-13] MEDS ORDERED: MORPHINE IV ONE (13:04)
[2019-01-13] MEDS ORDERED: ZOFRAN IV ONE (13:04)
[2019-01-13 14:02] LABS: Basophils # (Auto) 0.1 K/mm3 (0.0-0.1); Basophils % (Auto) 0.5 % (0.0-1.8); Eosinophils # (Auto) 0.4 K/mm3 (0.0-0.4); Eosinophils % (Auto) 2.8 % (0.0-4.3); Lymphocytes # (Auto) 0.9 K/mm3 (1.2-5.4); Lymphocytes % (Auto) 6.4 % (13.4-35.0); Mean Corpuscular HGB Conc 36 % (32-34); Mean Corpuscular Volume 82 fl (84-94); Monocytes # (Auto) 0.7 K/mm3 (0.0-0.8); Monocytes % (Auto) 5.2 % (0.0-7.3); Platelet Count 242 K/mm3 (140-440); Red Cell Distribution Width 13.8 % (13.2-15.2)
[2019-01-13 14:04] LABS: Hematocrit 48.3 % (35.5-45.6); Hemoglobin 17.3 gm/dl (11.8-15.2)
[2019-01-13 14:06] LABS: Bilirubin,Urine NEG (Negative); Blood,Urine NEG (Negative); Color,Urine Yellow (Yellow); Mucus,Urine 2+ /HPF; RBC,Urine < 1.0 /HPF (0.0-6.0); Urobilinogen,Urine < 2.0 mg/dL (<2.0)
[2019-01-13 14:07] LABS: WBC,Urine < 1.0 /HPF (0.0-6.0)
[2019-01-13 14:25] LABS: Alanine Aminotransferase 16 units/L (7-56); Albumin 4.6 g/dL (3.9-5); BUN/Creatinine Ratio 12; Blood Urea Nitrogen 11 mg/dL (9-20); Calcium 9.4 mg/dL (8.4-10.2); Hemolysis Index 6
--- NOTE | 2019-01-13 15:27 | Emergency Department Report ---
ED Abdominal Pain HPI - General Chief Complaint: Abdominal Pain Stated Complaint: STOMACH PAIN/STOMACH ULCERS Time Seen by Provider: 01/13/19 12:47 Source: patient, EMS Mode of arrival: Ambulatory Limitations: No Limitations - History of Present Illness Initial Comments: This is a 23-year-old male nontoxic, well nourished in appearance, no acute signs of distress presents to the ED with c/o of nausea and vomiting and abdominal pain that started this morning. Patient describes vomiting as food content and yellow gastric acid. Patient describes abdominal pain as cramping and aching with level of 8/10 diffuse. Patient denies chest pain, short of breath, fever, chills, headache, stiff neck, numbness or tingling. Patient denies any diarrhea or constipation. Patient denies any recent travels. Patient denies any allergies. MD Complaint: abdominal pain -: This morning Location: diffuse Radiation: none Migration to: no migration Severity: mild Severity scale (0 -10): 8 Quality: cramping, aching Consistency: constant Improves With: nothing Worsens With: nothing Associated Symptoms: nausea, vomiting. denies: diarrhea, fever, chills, constip ation, dysuria, hematemesis, hematochezia, melena, hematuria, anorexia, syncope - Related Data Previous Rx's Medication Instructions Recorded Last Taken Type HYDROcodone/APAP 5-325 [Jackson 1 each PO Q6HR PRN #12 tablet 10/22/17 Unknown Rx 5/325] Pantoprazole [Protonix TAB] 40 mg PO QDAY #30 tablet 10/22/17 Unknown Rx levoFLOXacin [Levaquin] 750 mg PO QDAY #5 tablet 10/22/17 Unknown Rx Acetaminophen/Codeine [Tylenol 1 tab PO Q6H PRN #12 tab 01/13/19 Unknown Rx /Codeine # 3 tab] Ondansetron [Zofran Odt] 4 mg PO Q8HR PRN #12 tab.rapdis 01/13/19 Unknown Rx Allergies Allergy/AdvReac Type Severity Reaction Status Date / Time No Known Allergies Allergy Verified 01/13/19 12:31 ED Review of Systems ROS: Stated complaint: STOMACH PAIN/STOMACH ULCERS Other details as noted in HPI Constitutional: denies: chills, fever Eyes: denies: eye pain, eye discharge, vision change ENT: denies: ear pain, throat pain Respiratory: denies: cough, shortness of breath, wheezing Cardiovascular: denies: chest pain, palpitations Endocrine: no symptoms reported Gastrointestinal: abdominal pain, nausea, vomiting. denies: diarrhea Genitourinary: denies: urgency, dysuria Musculoskeletal: denies: back pain, joint swelling, arthralgia Skin: denies: rash, lesions Neurological: denies: headache, weakness, paresthesias Psychiatric: denies: anxiety, depression Hematological/Lymphatic: denies: easy bleeding, easy bruising ED Past Medical Hx - Past Medical History Hx Congestive Heart Failure: No Hx Diabetes: No Hx Asthma: No Hx COPD: No - Social History Smoking Status: Current Every Day Smoker Substance Use Type: Marijuana - Medications Home Medications: Home Medications Medication Instructions Recorded Confirmed Last Taken Type HYDROcodone/APAP 5-325 [Jackson 1 each PO Q6HR PRN #12 tablet 10/22/17 Unknown Rx 5/325] Pantoprazole [Protonix TAB] 40 mg PO QDAY #30 tablet 10/22/17 Unknown Rx levoFLOXacin [Levaquin] 750 mg PO QDAY #5 tablet 10/22/17 Unknown Rx Acetaminophen/Codeine [Tylenol 1 tab PO Q6H PRN #12 tab 01/13/19 Unknown Rx /Codeine # 3 tab] Ondansetron [Zofran Odt] 4 mg PO Q8HR PRN #12 tab.rapdis 01/13/19 Unknown Rx ED Physical Exam - General Limitations: No Limitations General appearance: alert, in no apparent distress - Head Head exam: Present: atraumatic, normocephalic - Neck Neck exam: Present: normal inspection, full ROM. Absent: tenderness, meningismus, lymphadenopathy - Respiratory Respiratory exam: Present: normal lung sounds bilaterally. Absent: respiratory distress, wheezes, rales, rhonchi, stridor, chest wall tenderness, accessory muscle use, decreased breath sounds, prolonged expiratory - Cardiovascular Cardiovascular Exam: Present: regular rate, normal rhythm, normal heart sounds. Absent: irregular rhythm, systolic murmur, diastolic murmur, rubs, gallop - GI/Abdominal GI/Abdominal exam: Present: soft, tenderness (diffuse), normal bowel sounds. Absent: distended, guarding, rebound, rigid, diminished bowel sounds - Extremities Exam Extremities exam: Present: normal inspection, full ROM - Back Exam Back exam: Present: normal inspection, full ROM. Absent: tenderness, CVA tenderness (R), CVA tenderness (L), paraspinal tenderness, vertebral tenderness, rash noted - Neurological Exam Neurological exam: Present: alert, oriented X3, normal gait - Psychiatric Psychiatric exam: Present: normal affect, normal mood - Skin Skin exam: Present: warm, dry, intact, normal color. Absent: rash ED Course Vital Signs 01/13/19 01/13/19 01/13/19 12:43 13:04 13:28 Temperature 98.6 F Pulse Rate 92 H Respiratory 18 15 16 Rate Blood Pressure 122/67 O2 Sat by Pulse 98 Oximetry - Reevaluation(s) Reevaluation #1: 01/13/19 15:25 Patient is speaking in full sentences with no signs of distress noted. ED Medical Decision Making - Lab Data Result diagrams: 01/13/19 13:24 01/13/19 13:24 - Medical Decision Making This is a 23-year-old male that presents with abdominal pain. Patient is stable and was examined by me. There is no abdominal tenderness. Negative signs of symptoms of appendicitis. Labs obtained. UA obtained. CT of abdomen obtained and dictated by the radiologist. Patient is notified of the report with no questions noted by the patient. Vital signs are stable prior to discharge. Patient received medical treatment in the ED which patient stated symptoms has resovled and subsided. Was instructed note to operate any machinery due to possible drowsiness and stated someone will drive the patient home. A by mouth challenge has been obtained and patient tolerated well with no nausea vomiting. Patient was notified of strict precatuions of appendictis symptoms and to return to the ED if symptoms occurs as soon as possible. Patient was also instructed to Follow-up with a primary care doctor in 3-5 days or if symptoms worsen and continue return to emergency room as soon as possible. At time of discharge, th e patient does not seem toxic or ill in appearance. No acute signs of distress noted. Patient agrees to discharge treatment plan of care. No further questions noted by the patient. - Differential Diagnosis appendicitis,pancreatitis, bowel obstruction, viral gastritis, IBS Critical care attestation.: If time is entered above; I have spent that time in minutes in the direct care of this critically ill patient, excluding procedure time. ED Disposition Clinical Impression: Abdominal pain Qualifiers: Abdominal location: generalized Qualified Code(s): R10.84 - Generalized abdominal pain Nausea & vomiting Qualifiers: Vomiting type: unspecified Vomiting Intractability: non-intractable Qualified Code(s): R11.2 - Nausea with vomiting, unspecified Disposition: DC-01 TO HOME OR SELFCARE Is pt being admited?: No Does the pt Need Aspirin: No Condition: Stable Instructions: Acute Abdominal Pain (ED), Acute Nausea and Vomiting (ED), Acetaminophen/Codeine (By mouth) Additional Instructions: Follow-up with a primary care doctor in 3-5 days or if symptoms worsen and continue return to emergency room as soon as possible. Do not operate any machinery while taking Tylenol with codeine as this may cause drowsiness. Prescriptions: Acetaminophen/Codeine [Tylenol /Codeine # 3 tab] 1 tab PO Q6H PRN #12 tab PRN Reason: Pain , Severe (7-10) Ondansetron [Zofran Odt] 4 mg PO Q8HR PRN #12 tab.rapdis PRN Reason: Nausea Referrals: PRIMARY CAREMD [Primary Care Provider] - 3-5 Days REANNA SALAS MD [Staff Physician] - 3-5 Days [facility] [Outside] - 3-5 Days [facility] [Outside] - 3-5 Days Forms: Work/School Release Form(ED)
--- NOTE | 2019-01-13 16:05 | Cat Scan Report ---
CT of the abdomen and pelvis with contrast INDICATION: Abdominal pain COMPARISON: None FINDINGS: Lung bases are clear. The liver, spleen, pancreas, adrenal glands and kidneys all appear no rmal. No definite gallbladder or biliary tree abnormality. No fluid or adenopathy in the upper abdome n. CT of the pelvis shows a normal appendix. Prostate is not enlarged. No pelvic fluid or adenopathy. No colitis or enteritis. No hernia or bowel obstruction. No significant skeletal lesion. IMPRESSION: Negative study Automated exposure control was utilized to diminish radiation dose. Signer Name: Parker Contreras MD Signed: 01/13/2019 4:01 PM Workstation Name: [id number]
[2019-01-13 18:27] VITALS: BP 124/86
== END 2019-01-13 18:20 | disposition home or self-care (01) ==
LOC: ED 12:30
DX: R10.84 Generalized abdominal pain (principal); R11.2 Nausea with vomiting, unspecified; F17.200 Nicotine dependence, unspecified, uncomplicated; F12.10 Cannabis abuse, uncomplicated; Z79.899 Other long term (current) drug therapy
CPT/HCPCS: 36415; 74177; 80053; 81001; 83690; 85025; 96361; 96374; 96375; 99284; J2270; J2405; J7030; Q9967